=== PATIENT | female | born 2000 | race Caucasian/White ===

== ENCOUNTER 2024-03-18 07:07 | Day surgery (SDC) | payer BC ==
[~2024-03-18 07:07] MED LIST: Sodium Chloride 0.9% 10 ML Syringe FLUSH PRN
[2024-03-18] MEDS ORDERED: Propofol 200 MG/20 ML SDV IV ONE (07:08)
[2024-03-18] MEDS: Lactated Ringers 1,000 ML IV SCH (07:24)
[2024-03-18] MEDS ORDERED: Propofol 200 MG/20 ML SDV ONE ×3 (07:53→08:57)
[2024-03-18] MEDS ORDERED: Ketamine 200 MG/20 ML MDV ONE (07:53)
[2024-03-18] MEDS ORDERED: Midazolam 1 MG/ML 2 ML SDV ONE (07:53)
[2024-03-18] MEDS ORDERED: Glycopyrrolate 0.2 MG/ML SDV ONE (07:53)
[2024-03-18] MEDS ORDERED: Lactated Ringers 1,000 ML ONE (08:57)
== END 2024-03-18 11:03 | disposition home or self-care (01) ==
LOC: KA.SDS 07:07
PROVIDERS: ATTEND Family Medicine
DX: K29.50 Unspecified chronic gastritis without bleeding (principal); K21.00 Gastro-esophageal reflux disease with esophagitis, without bleeding; K44.9 Diaphragmatic hernia without obstruction or gangrene; N93.8 Other specified abnormal uterine and vaginal bleeding; Z79.899 Other long term (current) drug therapy
CPT/HCPCS: 43239; 45380; 81025; J2250; J2704; J3490; J7120